=== PATIENT | female | born 1970 | race Two or more races ===

== ENCOUNTER 2020-12-29 09:28 | Emergency (ER) | payer SELFPAY ==
[~2020-12-29] VITALS: Ht 157.5 cm; Wt 76.0 kg
[2020-12-29 10:07] LABS: CALCIUM 8.6 mg/dL (8.5-10.1); GFR 59.2; POTASSIUM 3.5 mmol/L (3.5-5.1)
[2020-12-29 10:13] LABS: ALBUMIN/GLOBULIN RATIO 0.8 (1.0-1.7); TOTAL BILIRUBIN 0.2 mg/dL (0.2-1.0); TOTAL PROTEIN 6.8 g/dL (6.4-8.2)
[2020-12-29 10:19] LABS: BASO # 0.1 x10^3/uL (0.0-0.2); BASO % 1 % (0-3); EOS # 0.4 x10^3/uL (0.0-0.7); EOS % 4 % (0-3); HEMATOCRIT 22.3 % (36.0-47.0); LYMPH # 1.3 x10^3/uL (1.0-4.8); LYMPH % 14 % (24-48); MEAN CORPUSCULAR HEMOGLOBIN 18 pg (25-35); MEAN CORPUSCULAR HGB CONC 29 g/dL (31-37); MEAN CORPUSCULAR VOLUME 63 fL (79-100); MONO # 0.6 x10^3/uL (0.0-1.1); MONO % 6 % (0-9); NEUT % 75 % (31-73); PLATELET COUNT 440 x10^3/uL (140-400); RED BLOOD COUNT 3.52 x10^6/uL (3.50-5.40); RED CELL DISTRIBUTION WIDTH 19.7 % (11.5-14.5); WHITE BLOOD COUNT 9.4 x10^3/uL (4.0-11.0)
[2020-12-29 10:23] LABS: HEMOGLOBIN 6.5 g/dL (12.0-15.5)
[2020-12-29 12:33] VITALS: BP 127/91
[2020-12-29 12:48] VITALS: BP 162/96
[2020-12-29 13:18] LABS: HYPOCHROMIA MOD; MICROCYTOSIS MOD; PLT ESTIMATE ADEQUATE (ADEQUATE)
[2020-12-29 13:19] LABS: OVALOCYTES OCC; POLYCHROMASIA SLIGHT; TEAR DROP CELLS OCC
[2020-12-29 13:43] VITALS: BP 142/92
--- NOTE | 2020-12-29 14:23 | ED.ADGEN ---
Past Medical History Additional Past Medical Histor: reactive hypoglycemia Past Surgical History: , Tubal ligation, Other Additional Past Surgical Histo: gastric bypass, hernia repair Smoking Status: Never Smoker Alcohol Use: Occasionally General Adult EDM: Chief Complaint: ABNORMAL LABS HPI: HPI: Patient is 50-year-old female who presents to the emergency room requesting a blood transfusion. Patient states that she went to [facility] and they did lab works. They called her and told her that she needed to come to the emergency room for transfusion. She states her hemoglobin was six 6.7. She has been fatigued as well as having neck pain and back pain recently. That is why she originally went to the physician. She states her of cirrhosis 5 months ago. She is having issues with depression. She states she is not eating or drinking much. She has 2 girls to take care of. Patient states that she just wants to get a blood transfusion and leave. Review of Systems: Review of Systems: Complete ROS is negative unless otherwise documented in HPI Allergies: Allergies: Allergies Coded Allergies Type Severity Reaction Last Updated Verified NSAIDS (Non-Steroidal Anti-Inflamma Adverse Reaction Unknown hx gastric bypass 12/29/20 Yes Physical Exam: PE: General: Awake, alert, NAD. Well Nourished, well hydrated. Cooperative HEENT: Atraumatic, EOMI, PERRL, airway patent, moist oral mucosa Neck: Supple, trachea midline Respiratory: CTA bilaterally, normal effort, no wheezing/crackles CV: RRR, no murmur, cap refill <2 GI: Soft, nondistended, nontender, no masses MSK: No obvious deformities Skin: Warm, dry, intact Neuro: A&O x3, speech NL, sensory and motor grossly intact, no focal deficits Psych: Normal affect, normal mood, not suicidal or homicidal Current Patient Data: Labs: Laboratory Tests Test 12/29/20 09:47 White Blood Count 9.4 x10^3/uL (4.0-11.0) Red Blood Count 3.52 x10^6/uL (3.50-5.40) Hemoglobin 6.5 g/dL (12.0-15.5) *L Hematocrit 22.3 % (36.0-47.0) L Mean Corpuscular Volume 63 fL (79-100) L Mean Corpuscular Hemoglobin 18 pg (25-35) L Mean Corpuscular Hemoglobin Concent 29 g/dL (31-37) L Red Cell Distribution Width 19.7 % (11.5-14.5) H Platelet Count 440 x10^3/uL (140-400) H Neutrophils (%) (Auto) 75 % (31-73) H Lymphocytes (%) (Auto) 14 % (24-48) L Monocytes (%) (Auto) 6 % (0-9) Eosinophils (%) (Auto) 4 % (0-3) H Basophils (%) (Auto) 1 % (0-3) Neutrophils # (Auto) 7.0 x10^3/uL (1.8-7.7) Lymphocytes # (Auto) 1.3 x10^3/uL (1.0-4.8) Monocytes # (Auto) 0.6 x10^3/uL (0.0-1.1) Eosinophils # (Auto) 0.4 x10^3/uL (0.0-0.7) Basophils # (Auto) 0.1 x10^3/uL (0.0-0.2) Platelet Estimate Adequate (ADEQUATE) Polychromasia Slight Hypochromasia Mod Microcytosis Mod Tear Drop Cells Occ Ovalocytes Occ Sodium Level 139 mmol/L (136-145) Potassium Level 3.5 mmol/L (3.5-5.1) Chloride Level 102 mmol/L (98-107) Carbon Dioxide Level 29 mmol/L (21-32) Anion Gap 8 (6-14) Blood Urea Nitrogen 18 mg/dL (7-20) Creatinine 1.0 mg/dL (0.6-1.0) Estimated GFR (Cockcroft-Gault) 59.2 BUN/Creatinine Ratio 18 (6-20) Glucose Level 104 mg/dL (70-99) H Calcium Level 8.6 mg/dL (8.5-10.1) Total Bilirubin 0.2 mg/dL (0.2-1.0) Aspartate Amino Transferase (AST) 20 U/L (15-37) Alanine Aminotransferase (ALT) 14 U/L (14-59) Alkaline Phosphatase 78 U/L (46-116) Total Protein 6.8 g/dL (6.4-8.2) Albumin 3.0 g/dL (3.4-5.0) L Albumin/Globulin Ratio 0.8 (1.0-1.7) L Laboratory Tests 12/29/20 09:47 Laboratory Tests 12/29/20 09:47 Vital Signs: Vital Signs Date Time Temp Pulse Resp B/P (MAP) Pulse Ox O2 Delivery O2 Flow Rate FiO2 12/29/20 14:34 88 18 145/90 (108) 98 Room Air 12/29/20 13:43 98.7 98.7 EKG: EKG: [] Heart Score: C/O Chest Pain: N/A Risk Factors: Risk Factors: DM, Current or recent (<one month) smoker, HTN, HLP, family history of CAD, obesity. Risk Scores: Score 0 - 3: 2.5% MACE over next 6 weeks - Discharge Home Score 4 - 6: 20.3% MACE over next 6 weeks - Admit for Clinical Observation Score 7 - 10: 72.7% MACE over next 6 weeks - Early Invasive Strategies Radiology/Procedures: Radiology/Procedures: [] Course & Med Decision Making: Course & Med Decision Making Pertinent Labs and Imaging studies reviewed. (See chart for details) Patient is a 50-year-old female presents to the emergency room requesting a blood transfusion. CBC at this time does show a hemoglobin of 6.5. Is unclear at this time what is causing patient's anemia. It is possible that she has iron deficiency anemia due to nutritional issues. I have discussed with her that it is also possible this could be related to cancer or liver disease. I have discussed with her that we should do CT of her abdomen and neck as she is been having pain in these for several weeks. I have discussed we should also do further evaluation of her anemia and that she should be admitted to the hospital. Patient refuses to have any of these things done. We will give her a unit of blood. Patient was agitated throughout her time in the emergency room. Several times she stated she was going to pull out her IV and leave during her transfusion. patient has requested to leave AGAINST MEDICAL ADVICE. I have discussed the benefits of staying for a full work up and the patient would like to leave. I discussed the risks of leaving including but not limited to , permenant end-organ damage, worsening of condition and patient stated understanding. Patient signed out against medical advice. Galen Disclaimer: Galen Disclaimer: This electronic medical record was generated, in whole or in part, using a voice recognition dictation system. Departure Departure Impression: Primary Impression: Anemia Additional Impression: Agitation Disposition: LEFT AGAINST MEDICAL ADVICE Condition: GUARDED Referrals: ROGER MROILLO APRN (PCP) Problem Qualifiers ISELA HANSON MD Dec 29, 2020 14:22
[2020-12-29 14:34] VITALS: BP 145/90
== END 2020-12-29 14:40 | disposition left against medical advice (07) ==
LOC: ER 09:28
DX: D64.9 Anemia, unspecified (principal); R45.1 Restlessness and agitation; M54.2 Cervicalgia; Z98.84 Bariatric surgery status; Z88.6 Allergy status to analgesic agent
CPT/HCPCS: 36415; 36430; 80053; 85025; 86850; 86900; 86901; 86920; 99285; P9016